=== PATIENT | female | born 1950 | race African-American/Black ===

== ENCOUNTER 2020-04-04 18:10 | Emergency (ER) | payer OTHER ==
[2020-04-04] MEDS ORDERED: DOXYCYCLINE HYCLATE 100 MG CAPSULE PO ONE ×2 (18:51→18:53)
[2020-04-04 18:53] VITALS: BP 152/75; PULSE 77; TEMP 98.7; BMI 23.6
== END 2020-04-04 19:25 | disposition home or self-care (01) ==
LOC: FER 18:10
DX: S60.511A Abrasion of right hand, initial encounter (principal); S69.92XA Unspecified injury of left wrist, hand and finger(s), initial encounter; Y04.8XXA Assault by other bodily force, initial encounter
CPT/HCPCS: 73130-TC-LT-FY; 73130-TC-RT-FY; 99284-25